=== PATIENT | female | born 1970 | race Caucasian/White ===

== ENCOUNTER 2022-11-03 14:46 | Emergency (ER) | payer BC ==
--- NOTE | 2022-11-03 14:47 | ERPHSYRPT ---
- History of Present Illness Time Seen by Provider: 11/03/22 14:47 Source: patient Exam Limitations: no limitations Physician History: This is a 52-year-old white female patient who lives in [place] and was heading to [facility] because of increasing shortness of breath her last few days. However, her shortness of breath suddenly worsened and therefore she diverted herself here to this emergency department. Patient's was recently diagnosed with COVID-19 infection (approximately 1 and half weeks ago). Patient states that shortness of breath is worse with exertion. Patient denies chest pain. She denies abdominal pain. She has no nausea vomiting or diarrhea symptoms. She has not had a fever or cough. Her throat has been sore. Pt has h/o of seizure. Timing/Duration: day(s) (Last few days), worse Activities at Onset: activity Severity of Dyspnea-Max: moderate Severity of Dyspnea-Current: moderate Possible Cause: no prior episodes Modifying Factors: Improves With: activity Associated Symptoms: anxiety, No chest pain/discomfort Allergies/Adverse Reactions: No Known Drug Allergies Allergy (Verified 11/03/22 14:59) Home Medications: Cholecalciferol (Vitamin D3) [Vitamin D] 2,000 unit PO DAILY 11/03/22 [ History] Desvenlafaxine Succinate [Pristiq ER] 50 mg PO DAILY 11/03/22 [History] Dextroamphetamine/Amphetamine [Adderall Xr 20 mg Capsule] 20 mg PO DAILY 11/03/22 [History] Hydrocodone/Acetaminophen [Hydrocodone-Acetamin 2.5-325] 1 each PO QID 11/03/22 [History] Levetiracetam [Keppra] 1,500 mg PO BID 11/03/22 [History] Lipase/Protease/Amylase [Creon Dr 36,000 Units Capsule] 1 each PO DAILY 11/03/22 [History] Midodrine HCl 5 mg PO TID 11/03/22 [History] Pregabalin [Lyrica 150Mg] 150 mg PO BID 11/03/22 [History] azaTHIOprine [Imuran] 150 mg PO DAILY 11/03/22 [History] Travel Risk - International Travel Have you traveled outside of the country in past 3 weeks: No - Coronavirus Screening Are you exhibiting any of the following symptoms?: No Close contact with a COVID-19 positive Pt in past 14-21 Days: No - Review of Systems Constitutional: No Symptoms Eyes: No Symptoms Ears, Nose, & Throat: No Symptoms Respiratory: Dyspnea on Exertion (PHILLIP) Cardiac: No Symptoms Abdominal/Gastrointestinal: No Symptoms Genitourinary Symptoms: No Symptoms Musculoskeletal: No Symptoms Skin: No Symptoms Neurological: No Symptoms Psychological: No Symptoms Endocrine: No Symptoms Hematologic/Lymphatic: No Symptoms Immunological/Allergic: No Symptoms All Other Systems: Reviewed and Negative - Past Medical History Pertinent Past Medical History: Yes - Past Surgical History Past Surgical History: Yes - Nursing Vital Signs Nursing Vital Signs: Initial Vital Signs Temperature 97.1 F 11/03/22 14:47 Pulse Rate 90 11/03/22 14:47 Respiratory Rate 28 H 11/03/22 14:47 Blood Pressure 151/102 11/03/22 14:47 O2 Sat by Pulse Oximetry 100 11/03/22 14:47 Pain Scale Pain Intensity 0 - Physical Exam General Appearance: mild distress, alert, anxiety Eye Exam: PERRL/EOMI, eyes nml inspection Ears, Nose, Throat Exam: hearing grossly normal, normal ENT inspection, normal pharynx Neck Exam: normal inspection, non-tender, supple, full range of motion Respiratory Exam: normal breath sounds, lungs clear, airway intact, No chest tenderness, No respiratory distress Cardiovascular/Chest Exam: normal heart sounds, regular rate/rhythm Abdominal/Gastrointestinal Exam: soft, normal bowel sounds, No tenderness Rectal Exam: not done Extremity Exam: non-tender, normal range of motion, normal inspection Neurologic Exam: alert, oriented x 3, cooperative, technical healthcare consultant II-XII nml as tested, normal mood/affect, nml cerebellar function, nml station & gait, sensation nml Skin Exam: normal color, warm, dry Lymphatic Exam: No adenopathy SpO2 Interpretation: normal O2 Delivery: Room Air - Course Nursing assessment & vital signs reviewed: Yes EKG Interpreted by Me: RATE (82), Sinus Rhythm, NORMAL AXIS, NORMAL INTERVALS, NORMAL QRS, NORMAL ST-T, Other (No acute ischemic changes on today's twelve-lead EKG. No comparison twelve-lead EKG available.) Ordered Tests: Active Orders 24 hr Category Date Time Status Licensed Life And Health Agent STAT Care 11/03/22 15:14 Active EKG-ER Only STAT Care 11/03/22 15:11 Active IV Insertion STAT Care 11/03/22 15:11 Active Pulse Oximetry (ED) STAT Care 11/03/22 15:11 Active CHEST 1 VIEW (PORTABLE) Stat Exams 11/03/22 17:01 Taken BLOOD CULTURE Stat Lab 11/03/22 15:55 Received CBC W DIFF Stat Lab 11/03/22 15:50 Completed CMP Stat Lab 11/03/22 15:50 Completed D-DIMER QUANTITATIVE Stat Lab 11/03/22 15:50 Completed Lactic Acid Stat Lab 11/03/22 15:11 Completed NT PRO BNPII Stat Lab 11/03/22 15:50 Completed TROPONIN Q4H Lab 11/03/22 15:50 Completed TROPONIN Q4H Lab 11/03/22 19:15 Ordered TROPONIN Q4H Lab 11/03/22 23:15 Ordered Respiratory Therapy Assessment DAILY RT 11/03/22 15:37 Completed Medication Summary Discontinued Medications Generic Name Dose Route Start Last Admin Trade Name Freq PRN Reason Stop Dose Admin Albuterol/Ipratropium Confirm 11/03/22 15:33 Ipratropium/Albuterol Sulfate 3 Ml Ampul.Neb Administered 11/03/22 15:34 Dose 3 ml IH .STK-MED ONE Albuterol/Ipratropium 3 ml 11/03/22 15:36 11/03/22 15:53 Ipratropium/Albuterol Sulfate 3 Ml Ampul.Neb IH 11/03/22 15:37 3 ml STAT ONE Administration Methylprednisolone Sodium 0 mg 11/03/22 17:03 11/03/22 17:26 Succinate 125 mg/ Sterile IV 11/03/22 17:04 125 mg Water 2 ml STAT ONE Administration Methylprednisolone Sodium Succinate Confirm 11/03/22 17:26 Methylprednis Sod Succ 125 Mg/2 Ml Vial Administered 11/03/22 17:27 Dose 125 mg .ROUTE .STK-MED ONE Sterile Water Confirm 11/03/22 17:26 Water For Injection,Sterile 10 Ml Vial Administered 11/03/22 17:27 Dose 10 ml IJ .STK-MED ONE Lab/Rad Data: Laboratory Result Diagrams 11/03/22 15:50 11/03/22 15:50 Laboratory Results 11/03/22 11/03/22 11/03/22 Range/Units 16:00 15:50 15:50 WBC (4.0-10.5) x10^3/uL RBC (4.1-5.4) x10^6/uL Hgb (12.0-16.0) g/dL Hct (35-47) % MCV (78-100) fL MCH (26-32) pg MCHC (32-36) g/dL RDW (11.5-14.0) % Plt Count (150-450) x10^3/uL MPV (7.5-11.0) fL Gran % (36.0-66.0) % Immature Gran % (Auto) (0.00-0.4) % Nucleat RBC Rel Count (0.00-0.1) % Eos # (Auto) (0-0.5) x10^3/uL Immature Gran # (Auto) (0.00-0.03) x10^3u/L Absolute Lymphs (auto) (1.0-4.6) x10^3/uL Absolute Monos (auto) (0.0-1.3) x10^3/uL Absolute Nucleated RBC (0.00-0.01) x10^3u/L Lymphocytes % (24.0-44.0) % Monocytes % (0.0-12.0) % Eosinophils % (0.00-5.0) % Basophils % (0.0-0.4) % Absolute Granulocytes (1.4-6.9) x10^3/uL Basophils # (0-0.4) x10^3/uL D-Dimer < 0.19 (0.0-0.50) mg/L Sodium (137-145) mmol/L Potassium (3.5-5.1) mmol/L Chloride (98-107) mmol/L Carbon Dioxide (22-30) mmol/L Anion Gap (5-15) MEQ/L BUN (7-17) mg/dL Creatinine (0.52-1.04) mg/dL Estimated GFR ML/MIN Glucose (74-106) mg/dL Lactic Acid (0.4-2.0) Calcium (8.4-10.2) mg/dL Total Bilirubin (0.2-1.3) mg/dL AST (14-36) U/L ALT (0-35) U/L Alkaline Phosphatase (38-126) U/L Troponin I < 0.012 (0.000-0.034) ng/mL NT-Pro-B Natriuret Pep (<300) pg/mL Serum Total Protein (6.3-8.2) g/dL Albumin (3.5-5.0) g/dL Influenza Type A Ag NEGATIVE (NEGATIVE) Influenza Type B Ag NEGATIVE (NEGATIVE) RSV (PCR) NEGATIVE (NEGATIVE) SARS-CoV-2 (PCR) POSITIVE A (NEGATIVE) 11/03/22 11/03/22 11/03/22 Range/Units 15:50 15:50 15:11 WBC 4.3 (4.0-10.5) x10^3/uL RBC 4.61 (4.1-5.4) x10^6/uL Hgb 14.2 (12.0-16.0) g/dL Hct 42.1 (35-47) % MCV 91.3 (78-100) fL MCH 30.8 (26-32) pg MCHC 33.7 (32-36) g/dL RDW 12.9 (11.5-14.0) % Plt Count 316 (150-450) x10^3/uL MPV 8.9 (7.5-11.0) fL Gran % 66.7 H (36.0-66.0) % Immature Gran % (Auto) 0.7 H (0.00-0.4) % Nucleat RBC Rel Count 0.0 (0.00-0.1) % Eos # (Auto) 0.02 (0-0.5) x10^3/uL Immature Gran # (Auto) 0.03 (0.00-0.03) x10^3u/L Absolute Lymphs (auto) 0.94 L (1.0-4.6) x10^3/uL Absolute Monos (auto) 0.41 (0.0-1.3) x10^3/uL Absolute Nucleated RBC 0.00 (0.00-0.01) x10^3u/L Lymphocytes % 22.0 L (24.0-44.0) % Monocytes % 9.6 (0.0-12.0) % Eosinophils % 0.5 (0.00-5.0) % Basophils % 0.5 (0.0-0.4) % Absolute Granulocytes 2.85 (1.4-6.9) x10^3/uL Basophils # 0.02 (0-0.4) x10^3/uL D-Dimer (0.0-0.50) mg/L Sodium 139 (137-145) mmol/L Potassium 4.2 (3.5-5.1) mmol/L Chloride 105 (98-107) mmol/L Carbon Dioxide 25 (22-30) mmol/L Anion Gap 14.0 (5-15) MEQ/L BUN 12 (7-17) mg/dL Creatinine 0.85 (0.52-1.04) mg/dL Estimated GFR > 60.0 ML/MIN Glucose 99 (74-106) mg/dL Lactic Acid 1.7 (0.4-2.0) Calcium 9.0 (8.4-10.2) mg/dL Total Bilirubin 0.30 (0.2-1.3) mg/dL AST 23 (14-36) U/L ALT 26 (0-35) U/L Alkaline Phosphatase 81 (38-126) U/L Troponin I (0.000-0.034) ng/mL NT-Pro-B Natriuret Pep 22.9 (<300) pg/mL Serum Total Protein 7.3 (6.3-8.2) g/dL Albumin 4.2 (3.5-5.0) g/dL Influenza Type A Ag (NEGATIVE) Influenza Type B Ag (NEGATIVE) RSV (PCR) (NEGATIVE) SARS-CoV-2 (PCR) (NEGATIVE) - Progress Progress: improved, re-examined Air Movement: good Progress Note: 11/03/22 16:12 This patient's medical issue is 1 of moderate complexity. Level complexity in the work-up performed is based on review of the patient's past medical history, review the patient's medication list, review the patient's drug allergy list, review of the patient's present medical issue and physical findings on examination. The work-up in this patient includes a twelve-lead EKG, chest x- ray or CT of the chest depending on the results of the D-dimer, troponin level, BNP, viral swabs. 11/03/22 17:50 I evaluated the results of the work-up in the emergency department. Patient's COVID-19 status is positive for COVID-19 infection. Patient has a normal D- dimer. Patient has a normal BNP. Patient has a normal troponin level. Patient has a normal twelve-lead EKG without evidence of any acute ischemic changes. Patient's chest x-ray was interpreted by me and I do not see an acute cardiopulmonary process. Patient's lab work and x-rays and vital signs show no evidence of an acute, emergent issue. 11/03/22 17:53 I checked and rechecked and rechecked again this patient's laboratory work-up, twelve-lead EKG and chest x-ray evaluation. The only thing that I am finding of significance is a COVID-19 infection which certainly can be the cause of her shortness of breath. I asked her on a number of occasions if there is any other issue or concern that she has at this time. She says she does not. We will discharge her to home with a prescription for prednisone. Blood Culture(s) Obtained: Yes Counseled pt/family regarding: lab results, diagnosis, need for follow-up Medical Desision Making - Diagnostic Testing Diagnostic test were ordered, analyzed, and reviewed by me: Yes Radiological Interpretation: Interpreted by me - Risk of complications The pt has a mod risk of morbidity or mortality based on: Need for prescription drug management - Departure Departure Disposition: Home Clinical Impression: COVID-19 virus infection Condition: Stable Critical Care Time: No Referrals: ZEINA OROPEZA [Primary Care Provider] - Follow up/PCP as directed Additional Instructions: Drink plenty of fluids. Take your medication as prescribed. Follow-up with your prescribing provider on 11/07/2019 3 in the morning to make arrangements for follow-up appointment after your quarantine period of time. Quarantine yourself for the next 7 days. Take your steroids as prescribed. Prescriptions: Prednisone 10 mg [Deltasone 10 mg] 10 mg PO TID #12 tablet
[2022-11-03] MEDS ORDERED: DUONEB 0.5-3 MG/3 ml Neb IH ONE ×2 (15:33→15:36)
[2022-11-03 16:13] LABS: Absolute Neutrophil Ct (ANC) 2.85 x10^3/uL (1.4-6.9); BASOPHIL % 0.5 % (0.0-0.4); Basophil (Absolute #) 0.02 x10^3/uL (0-0.4); Eosinophil % 0.5 % (0.00-5.0); Eosinophil (Absolute #) 0.02 x10^3/uL (0-0.5); Hematocrit 42.1 % (35-47); Hemoglobin 14.2 g/dL (12.0-16.0); IMMATURE GRAN # 0.03 x10^3u/L (0.00-0.03); IMMATURE GRAN % 0.7 % (0.00-0.4); Lymphocyte (Absolute #) 0.94 x10^3/uL (1.0-4.6); Mean Cell Volume 91.3 fL (78-100); Mean Corpuscular Hemoglobin 30.8 pg (26-32); Mean Corpuscular Hgb Concent. 33.7 g/dL (32-36); Mean Platelet Volume 8.9 fL (7.5-11.0); Monocyte (Absolute #) 0.41 x10^3/uL (0.0-1.3); Monocytes % 9.6 % (0.0-12.0); Neutrophil % 66.7 % (36.0-66.0); Platelet Count 316 x10^3/uL (150-450); Red Blood Count 4.61 x10^6/uL (4.1-5.4); Red Cell Distribution Width 12.9 % (11.5-14.0); White Blood Count 4.3 x10^3/uL (4.0-10.5)
[2022-11-03 16:37] LABS: ALBUMIN 4.2 g/dL (3.5-5.0); ALKALINE PHOSPHATASE 81 U/L (38-126); BLOOD UREA NITROGEN 12 mg/dL (7-17); CHLORIDE 105 mmol/L (98-107); Carbon Dioxide 25 mmol/L (22-30); Creatinine 1 0.85 mg/dL (0.52-1.04); EST GLOMERULAR FILTRATION RATE > 60.0 ML/MIN; Glucose 99 mg/dL (74-106); NT PRO BNPII 22.9 pg/mL (<300); Potassium 4.2 mmol/L (3.5-5.1); SGOT/AST 23 U/L (14-36); SGPT/ALT 26 U/L (0-35); SODIUM 139 mmol/L (137-145); Total Protein 7.3 g/dL (6.3-8.2)
[2022-11-03 16:47] LABS: INFLUENZA A NEGATIVE (NEGATIVE); INFLUENZA B NEGATIVE (NEGATIVE); RESPIRATORY SYNCTIAL VIRUS NEGATIVE (NEGATIVE)
[2022-11-03 16:52] LABS: SARS-CoV-2 Xpert Express POSITIVE (NEGATIVE)
[2022-11-03 16:54] VITALS: RESP 22; TEMP 98.2
[2022-11-03 17:03] VITALS: PULSE 92
[2022-11-03] MEDS ORDERED: solu-MEDROL 125 MG, Sterile H2O 10 ml 2 ML IV ONE ×2 (17:03)
[2022-11-03] MEDS ORDERED: solu-MEDROL ONE (17:26)
[2022-11-03] MEDS ORDERED: Sterile H2O 10 ml IJ ONE (17:26)
[2022-11-03 18:11] VITALS: BP 133/92; O2SAT 98
== END 2022-11-03 18:22 | disposition home or self-care (01) ==
LOC: ED 14:46
DX: U07.1 COVID-19 (principal); R06.02 Shortness of breath; J02.9 Acute pharyngitis, unspecified; Z79.52 Long term (current) use of systemic steroids; Z79.891 Long term (current) use of opiate analgesic
CPT/HCPCS: 0241U; 36000; 36415; 71045; 80053; 83605; 83880; 84484; 85025; 85379; 87040; 93005; 93041; 94640; 94760; 96374; 99284; J2930; A9270-GY

== ENCOUNTER 2023-11-30 22:36 | Emergency (ER) | payer BC ==
--- NOTE | 2023-11-30 22:54 | ERPHSYRPT ---
- History of Present Illness Time Seen by Provider: 11/30/23 22:53 Historian: patient, family Exam Limitations: no limitations Physician History: This is a 53-year-old white female patient who was fine this morning when she awoke and early afternoon. Later afternoon she started having some epigastric abdominal pain, headache and felt as though she was going to have a liquid diarrheal stool. She then became nauseated and passed out. Patient has multiple medical issues. She has a history of seizure disorder, gastric bypass surgery, Crohn's disease, paroxysmal hypotension and she is on midodrine for this. She has a history of recurrent dizziness, she denies chest pain. She denies shortness of breath. Patient does have a history gastroesophageal reflux disease, peptic ulcer disease, PTSD, conversion disorder as well as anxiety and depression. Patient gets dehydrated very easily per her report. Timing/Duration: today Activities at Onset: none Quality: aching Abdominal Pain Onset Location: epigastric Severity of Pain-Max: mild (Moderate) Severity of Pain-Current: mild (To moderate) Modifying Factors: Improves With: vomiting Associated Symptoms: diarrhea, headache, loss of appetite, nausea, vomiting, weakness, No chest pain Previous symptoms: same symptoms as today, no recent treatment Allergies/Adverse Reactions: No Known Drug Allergies Allergy (Verified 11/30/23 23:08) Home Medications: Cholecalciferol (Vitamin D3) [Vitamin D] 2,000 unit PO DAILY 11/03/22 [History] Desvenlafaxine Succinate [Pristiq ER] 50 mg PO DAILY 11/03/22 [History] Dextroamphetamine/Amphetamine [Adderall Xr 20 mg Capsule] 20 mg PO DAILY 11/03/22 [History] Hydrocodone/Acetaminophen [Hydrocodone-Acetamin 2.5-325] 1 each PO QID 11/03/22 [History] Levetiracetam [Keppra] 1,500 mg PO BID 11/03/22 [History] Lipase/Protease/Amylase [Creon Dr 36,000 Units Capsule] 1 each PO DAILY 11/03/22 [History] Midodrine HCl 5 mg PO TID 11/03/22 [History] Pregabalin [Lyrica 150Mg] 150 mg PO BID 11/03/22 [History] azaTHIOprine [Imuran] 150 mg PO DAILY 11/03/22 [History] Hx Tetanus, Diphtheria Vaccination/Date Given: Yes Hx Influenza Vaccination/Date Given: Yes Hx Pneumococcal Vaccination/Date Given: No Travel Risk - Emerging Infectious Disease Are you exhibiting symptoms associated with any current EIDs: Yes Symptoms: Abdominal Pain, Diarrhea, Vomitting - Review of Systems Constitutional: Weakness Eyes: No Symptoms Ears, Nose, & Throat: No Symptoms Respiratory: No Symptoms Cardiac: Syncope Abdominal/Gastrointestinal: Abdominal Pain (Epigastrium), Nausea, Vomiting, Diarrhea (Chronic), Appetite Changes Genitourinary Symptoms: No Symptoms Musculoskeletal: No Symptoms Skin: No Symptoms Neurological: Dizziness, Headache Psychological: No Symptoms Endocrine: No Symptoms Hematologic/Lymphatic: No Symptoms Immunological/Allergic: No Symptoms All Other Systems: Reviewed and Negative - Past Medical History Pertinent Past Medical History: Yes Neurological History: Seizures ENT History: No Pertinent History Cardiac History: No Pertinent History Respiratory History: No Pertinent History Endocrine Medical History: Other Musculoskeletal History: No Pertinent History GI Medical History: Crohns Disease, Diverticulosis, GERD, Ulcer History: No Pertinent History Psycho-Social History: Anxiety, Depression, Other Female Reproductive Disorders: Other Other Medical History: ovarian cyst. PTSD. conversion disorder - Past Surgical History Past Surgical History: Yes Other Surgical History: gastric bypass. tubal. tonsil and adnoids. julian. ovarian cyst removal - Social History Smoking Status: Never smoker Exposure to second hand smoke: No Drug Use: none Patient Lives Alone: No - Nursing Vital Signs Nursing Vital Signs: Initial Vital Signs Temperature 97 F 11/30/23 22:46 Pulse Rate 84 11/30/23 22:46 Respiratory Rate 18 11/30/23 22:46 Blood Pressure 114/83 11/30/23 22:46 O2 Sat by Pulse Oximetry 100 11/30/23 22:46 Pain Scale Pain Intensity 4 - Physical Exam General Appearance: no apparent distress, alert, anxiety, thin Eye Exam: PERRL/EOMI, eyes nml inspection Ears, Nose, Throat Exam: dry mucous membranes Neck Exam: normal inspection, non-tender, supple, full range of motion Respiratory Exam: normal breath sounds, lungs clear, airway intact, No chest tenderness, No respiratory distress Cardiovascular Exam: regular rate/rhythm, normal heart sounds, normal peripheral pulses Gastrointestinal/Abdomen Exam: soft, normal bowel sounds, tenderness (Epigastrium to palpation), guarding (Epigastrium to palpation), No rebound Pelvic Exam: not done Rectal Exam: not done Back Exam: normal inspection, normal range of motion, No CVA tenderness, No vertebral tenderness Extremity Exam: normal inspection, normal range of motion, pelvis stable Neurologic Exam: alert, oriented x 3, cooperative, 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 QTc is 437) Ordered Tests: Active Orders 24 hr Category Date Time Status EKG-ER Only STAT Care 11/30/23 23:31 Active IV Insertion STAT Care 11/30/23 23:31 Active ABDOMEN AND PELVIS W/0 CONTRAS [CT] Stat Exams 11/30/23 23:32 Completed HEAD WITHOUT CONTRAST [CT] Stat Exams 11/30/23 23:33 Completed AMYLASE Stat Lab 11/30/23 23:35 Completed BLOOD CULTURE Stat Lab 11/30/23 23:50 Received CBC W DIFF Stat Lab 11/30/23 23:35 Completed CMP Stat Lab 11/30/23 23:35 Completed CULTURE,URINE Stat Lab 12/01/23 00:10 Received ETHYL ALCOHOL Stat Lab 11/30/23 23:35 Completed LIPASE Stat Lab 11/30/23 23:35 Completed MONO SCREEN Stat Lab 11/30/23 23:35 Completed TROPONIN Q4H Lab 11/30/23 23:35 Completed TROPONIN Q4H Lab 12/01/23 03:45 Ordered TROPONIN Q4H Lab 12/01/23 07:45 Ordered UA W/RFX UR CULTURE Stat Lab 12/01/23 00:10 Completed Medication Summary Generic Name Dose Route Start Last Admin Trade Name Freq PRN Reason Stop Dose Admin Lactated Ringer's 500 mls @ 500 mls/hr 12/01/23 01:18 Lactated Ringers IV 12/01/23 02:17 .Q1H ONE Ceftriaxone Sodium 1 gm in 100 mls @ 200 mls/hr 12/01/23 01:18 Rocephin 1 Gm / 100 Ml Nacl IV 12/01/23 01:47 STAT ONE Discontinued Medications Generic Name Dose Route Start Last Admin Trade Name Erik PRN Reason Stop Dose Admin Sodium Chloride 1,000 mls @ 999 mls/hr 11/30/23 23:31 12/01/23 01:13 Sodium Chloride 0.9% 1000 Ml IV 12/01/23 00:31 Infused .Q1H1M STA Infusion Sodium Chloride Confirm 12/01/23 00:05 Sodium Chloride 0.9% 1000 Ml Administered 12/01/23 00:06 Dose 1,000 mls @ ud .ROUTE .STK-MED ONE Ondansetron HCl 4 mg 11/30/23 23:31 12/01/23 00:06 Ondansetron Hcl 4 Mg/2 Ml Vial IV 11/30/23 23:32 4 mg STAT ONE Administration Ondansetron HCl Confirm 12/01/23 00:05 Ondansetron Hcl 4 Mg/2 Ml Vial Administered 12/01/23 00:06 Dose 4 mg .ROUTE .STK-MED ONE Pantoprazole Sodium 40 mg 11/30/23 23:31 12/01/23 00:06 Pantoprazole 40 Mg Vial IV 11/30/23 23:32 40 mg STAT ONE Administration Pantoprazole Sodium Confirm 12/01/23 00:05 Pantoprazole 40 Mg Vial Administered 12/01/23 00:06 Dose 40 mg IV .STK-MED ONE Lab/Rad Data: Laboratory Result Diagrams 11/30/23 23:35 11/30/23 23:35 Laboratory Results 12/01/23 11/30/23 11/30/23 Range/Units 00:10 23:55 23:35 WBC (3.98-10.04) x10^3/uL RBC (3.93-5.22) x10^6/uL Hgb (11.2-15.7) g/dL Hct (34.1-44.9) % MCV (79.4-94.8) fL MCH (25.6-32.2) pg MCHC (32.2-35.5) g/dL RDW (11.7-14.4) % Plt Count (182-369) x10^3/uL MPV (9.4-12.3) fL Gran % (34.0-71.1) % Immature Gran % (Auto) (0.001-0.429) % Nucleat RBC Rel Count (0.00-0.2) % Eos # (Auto) (0.04-0.36) x10^3/uL Immature Gran # (Auto) (0.001-0.031) x10^3u/L Absolute Lymphs (auto) (1.18-3.74) x10^3/uL Absolute Monos (auto) (0.24-0.86) x10^3/uL Absolute Nucleated RBC (0.00-0.012) x10^3u/L Lymphocytes % (19.3-51.7) % Monocytes % (4.7-12.5) % Eosinophils % (0.7-5.8) % Basophils % (0.1-1.2) % Absolute Granulocytes (1.56-6.13) x10^3/uL Basophils # (0.01-0.08) x10^3/uL Sodium (135-145) mmol/L Potassium (3.5-5.1) mmol/L Chloride (98-107) mmol/L Carbon Dioxide (22-30) mmol/L Anion Gap (5-15) MEQ/L BUN (7-17) mg/dL Creatinine (0.52-1.04) mg/dL Estimated GFR ML/MIN Glucose (74-106) mg/dL Calcium (8.4-10.2) mg/dL Total Bilirubin (0.2-1.3) mg/dL AST (14-36) U/L ALT (0-35) U/L Alkaline Phosphatase (38-126) U/L Troponin I (0.000-0.033) ng/mL Serum Total Protein (6.3-8.2) g/dL Albumin (3.5-5.0) g/dL Amylase (30-110) U/L Lipase (23-300) U/L Urine Color Dark Yellow A (Yellow) Urine Appearance Cloudy A (Clear) Urine pH 5.0 (4.6-8.0) Ur Specific [place] >=1.030 A (1.005-1.030) Urine Protein 30 (Negative) Urine Glucose (UA) Negative (Negative) mg/dL Urine Ketones Trace A (Negative) Urine Blood Moderate A (Negative) Urine Nitrite Negative (Negative) Urine Bilirubin Negative (Negative) Urine Urobilinogen 1.0 A (0.2) mg/dL Ur Leukocyte Esterase Negative (Negative) U Hyaline Cast (Auto) 11-20 (0-2) /LPF Urine Microscopic RBC 21-50 A (0-5) /HPF Urine Microscopic WBC 6-10 A (0-5) /HPF Ur Epithelial Cells Few (None Seen) /HPF Calcium Oxalate Crystal 11-25 A (None Seen) /HPF Urine Bacteria Few A (None Seen) /HPF Urine Culture Reflexed YES (NO) Ethyl Alcohol (0-10) mg/dL Monoscreen NEGATIVE (NEGATIVE) Influenza Type A Ag NEGATIVE (NEGATIVE) Influenza Type B Ag NEGATIVE (NEGATIVE) RSV (PCR) NEGATIVE (NEGATIVE) SARS-CoV-2 (PCR) NEGATIVE (NEGATIVE) 11/30/23 11/30/23 11/30/23 Range/Units 23:35 23:35 23:35 WBC 6.2 (3.98-10.04) x10^3/uL RBC 4.25 (3.93-5.22) x10^6/uL Hgb 12.9 (11.2-15.7) g/dL Hct 37.7 (34.1-44.9) % MCV 88.7 (79.4-94.8) fL MCH 30.4 (25.6-32.2) pg MCHC 34.2 (32.2-35.5) g/dL RDW 11.8 (11.7-14.4) % Plt Count 241 (182-369) x10^3/uL MPV 9.6 (9.4-12.3) fL Gran % 47.3 (34.0-71.1) % Immature Gran % (Auto) 0.3 (0.001-0.429) % Nucleat RBC Rel Count 0.0 (0.00-0.2) % Eos # (Auto) 0.06 (0.04-0.36) x10^3/uL Immature Gran # (Auto) 0.02 (0.001-0.031) x10^3u/L Absolute Lymphs (auto) 2.71 (1.18-3.74) x10^3/uL Absolute Monos (auto) 0.46 (0.24-0.86) x10^3/uL Absolute Nucleated RBC 0.00 (0.00-0.012) x10^3u/L Lymphocytes % 43.7 (19.3-51.7) % Monocytes % 7.4 (4.7-12.5) % Eosinophils % 1.0 (0.7-5.8) % Basophils % 0.3 (0.1-1.2) % Absolute Granulocytes 2.93 (1.56-6.13) x10^3/uL Basophils # 0.02 (0.01-0.08) x10^3/uL Sodium 141 (135-145) mmol/L Potassium 4.5 (3.5-5.1) mmol/L Chloride 107 (98-107) mmol/L Carbon Dioxide 25 (22-30) mmol/L Anion Gap 13.1 (5-15) MEQ/L BUN 11 (7-17) mg/dL Creatinine 0.82 (0.52-1.04) mg/dL Estimated GFR 85.0 ML/MIN Glucose 146 H (74-106) mg/dL Calcium 8.8 (8.4-10.2) mg/dL Total Bilirubin 0.20 (0.2-1.3) mg/dL AST 20 (14-36) U/L ALT 16 (0-35) U/L Alkaline Phosphatase 76 (38-126) U/L Troponin I < 0.012 (0.000-0.033) ng/mL Serum Total Protein 6.6 (6.3-8.2) g/dL Albumin 3.9 (3.5-5.0) g/dL Amylase 81 (30-110) U/L Lipase 125 (23-300) U/L Urine Color (Yellow) Urine Appearance (Clear) Urine pH (4.6-8.0) Ur Specific [place] (1.005-1.030) Urine Protein (Negative) Urine Glucose (UA) (Negative) mg/dL Urine Ketones (Negative) Urine Blood (Negative) Urine Nitrite (Negative) Urine Bilirubin (Negative) Urine Urobilinogen (0.2) mg/dL Ur Leukocyte Esterase (Negative) U Hyaline Cast (Auto) (0-2) /LPF Urine Microscopic RBC (0-5) /HPF Urine Microscopic WBC (0-5) /HPF Ur Epithelial Cells (None Seen) /HPF Calcium Oxalate Crystal (None Seen) /HPF Urine Bacteria (None Seen) /HPF Urine Culture Reflexed (NO) Ethyl Alcohol < 10 (0-10) mg/dL Monoscreen (NEGATIVE) Influenza Type A Ag (NEGATIVE) Influenza Type B Ag (NEGATIVE) RSV (PCR) (NEGATIVE) SARS-CoV-2 (PCR) (NEGATIVE) - Progress Progress: improved, pain not gone completely, re-examined Progress Note: 11/30/23 23:44 My medical decision making and the assignment of moderate complexity to this patient's medical issue today is based on review of the patient's past medical history, review of the patient's medication list, reviewed patient drug allergy list, history present illness and physical findings on examination. The workup in this patient includes placement of intravenous line, infusion of normal saline solution, infusion of Zofran intravenously, CBC, CMP, amylase, lipase, ethyl alcohol level, urinalysis, twelve-lead EKG, troponin level, CT scan of the abdomen pelvis without contrast, CT scan of the head without contrast. Differential diagnosis includes but is not limited to anxiety about health, deh ydration, vomiting, electrolyte abnormalities, acute intra-abdominal abnormality, acute intracranial abnormality, pancreatitis 12/01/23 01:27 I interpreted the patient's laboratory data results. Based on the laboratory data results, the patient has a significant urinary tract infection and mild deh ydration. The remainder of the laboratory data workup shows no acute, emergent medical issue CT scan of the head was interpreted by the radiologist and I reviewed the impression the impression states no acute intracranial abnormality. CT scan of the abdomen pelvis without contrast shows no significant acute intra- abdominal or intrapelvic abnormality. Counseled pt/family regarding: lab results, diagnosis, rad results - Departure Departure Disposition: Home Clinical Impression: UTI (urinary tract infection), Dehydration Condition: Stable Critical Care Time: No Referrals: ZEINA OROPEZA [Primary Care Provider] - Follow up/PCP as directed Additional Instructions: Drink plenty of clear liquids. Take your antibiotics and other medications as prescribed. Call your primary prescribing provider, bariatric surgeon, GI specialist on 12/03/2023 to make arrangements for follow-up appointment for further evaluation management and to be seen in the next 5 to 7 days. Prescriptions: Ondansetron ODT 4 MG [Zofran Odt 4 mg] 4 mg PO Q6H PRN PRN #10 tablet PRN Reason: Vomiting Cefdinir 300 mg PO BID #14 cap
[2023-11-30 23:08] VITALS: TEMP 97
[2023-11-30 23:56] LABS: Absolute Neutrophil Ct (ANC) 2.93 x10^3/uL (1.56-6.13); BASOPHIL % 0.3 % (0.1-1.2); Basophil (Absolute #) 0.02 x10^3/uL (0.01-0.08); Eosinophil (Absolute #) 0.06 x10^3/uL (0.04-0.36); Hematocrit 37.7 % (34.1-44.9); Hemoglobin 12.9 g/dL (11.2-15.7); IMMATURE GRAN # 0.02 x10^3u/L (0.001-0.031); IMMATURE GRAN % 0.3 % (0.001-0.429); Lymphocyte (Absolute #) 2.71 x10^3/uL (1.18-3.74); Lymphocytes % 43.7 % (19.3-51.7); Mean Cell Volume 88.7 fL (79.4-94.8); Mean Corpuscular Hemoglobin 30.4 pg (25.6-32.2); Mean Corpuscular Hgb Concent. 34.2 g/dL (32.2-35.5); Mean Platelet Volume 9.6 fL (9.4-12.3); Monocyte (Absolute #) 0.46 x10^3/uL (0.24-0.86); Monocytes % 7.4 % (4.7-12.5); Neutrophil % 47.3 % (34.0-71.1); Platelet Count 241 x10^3/uL (182-369); Red Blood Count 4.25 x10^6/uL (3.93-5.22); Red Cell Distribution Width 11.8 % (11.7-14.4); White Blood Count 6.2 x10^3/uL (3.98-10.04)
[2023-12-01] MEDS ORDERED: PROTONIX 40 MG IV IV ONE (00:05)
[2023-12-01] MEDS ORDERED: Sodium Chloride 0.9% 1000 ML 1,000 ML ONE (00:05)
[2023-12-01] MEDS ORDERED: Zofran 4 MG/2 ML VIAL ONE (00:05)
[2023-12-01] MEDS: Sodium Chloride 0.9% 1000 ML 1,000 ML IV STA (00:06)
[2023-12-01] MEDS: PROTONIX 40 MG IV IV ONE (00:06)
[2023-12-01] MEDS: Zofran 4 MG/2 ML VIAL IV ONE (00:06)
[2023-12-01 00:13] LABS: ALBUMIN 3.9 g/dL (3.5-5.0); ALKALINE PHOSPHATASE 76 U/L (38-126); AMYLASE 81 U/L (30-110); ANION GAP 13.1 MEQ/L (5-15); BLOOD UREA NITROGEN 11 mg/dL (7-17); CHLORIDE 107 mmol/L (98-107); Calcium 8.8 mg/dL (8.4-10.2); Carbon Dioxide 25 mmol/L (22-30); Creatinine 1 0.82 mg/dL (0.52-1.04); ETHYL ALCOHOL < 10 mg/dL (0-10); Glucose 146 mg/dL (74-106); LIPASE 125 U/L (23-300); Potassium 4.5 mmol/L (3.5-5.1); SGOT/AST 20 U/L (14-36); SGPT/ALT 16 U/L (0-35); SODIUM 141 mmol/L (135-145); Total Protein 6.6 g/dL (6.3-8.2)
[2023-12-01 00:52] LABS: Appearance Cloudy (Clear); Bilirubin Negative (Negative); Blood Moderate (Negative); Epithelial Cells Few /HPF (None Seen); Glucose, Urine Negative (Negative); Ketones Trace (Negative); Leukocyte Esterase Negative (Negative); Nitrite Negative (Negative); Protein,Urine Dip 30 (Negative); RBC 21-50 /HPF (0-5); Specific Gravity >=1.030 (1.005-1.030)
[2023-12-01 01:08] LABS: Bacteria Few /HPF (None Seen)
--- NOTE | 2023-12-01 01:15 | XRAY ---
CLINICAL HISTORY: ABD pain; diarrhea COMPARISON: None. TECHNIQUE: A CT scan of the abdomen and pelvis was performed without IV contrast. Coronal and sagittal reconstructive images were also obtained. One of the following dose reduction techniques was utilized for this exam: Automated exposure control, adjustment of the mA and/or kV according to patient size, and use of iterative reconstruction. FINDINGS: Sections of the lower thorax show minimal bilateral pleural reaction. Abdomen: The liver is normal in size. No focal or diffuse parenchymal abnormality. The intrahepatic biliary radicals and the bile ducts are normal. Postcholecystectomy status. The spleen, pancreas, and adrenal glands are unremarkable. The kidneys are normal in size and shape. No calculi or hydronephrosis. Fecal-loaded colon. The visualized small bowel loops are unremarkable. The appendix appears unremarkable. Post gastric bypass surgery changes. Small uncomplicated fat-containing umbilical hernia. Pelvis: The urinary bladder is unremarkable. The rectosigmoid colon is unremarkable. Uterus and adnexa appear unremarkable. Mild degenerative changes in the lumbar spine were noted. IMPRESSION: No significant acute intra-abdominal abnormality was detected in plain CT abdomen and pelvis. Electronically Signed by: Epi Garcia MD. (12/01/2023 01:12:02 EDT)
[2023-12-01 01:17] LABS: INFLUENZA A NEGATIVE (NEGATIVE); INFLUENZA B NEGATIVE (NEGATIVE); RESPIRATORY SYNCTIAL VIRUS NEGATIVE (NEGATIVE); SARS-CoV-2 Xpert Express NEGATIVE (NEGATIVE)
--- NOTE | 2023-12-01 01:21 | XRAY ---
CLINICAL HISTORY: Syncopal episode COMPARISON: none TECHNIQUE: Multiple axial images are obtained from the skull base to the vertex without contrast. CT scan was performed according to ALARA (as low as reasonable achievable). FINDINGS: The brain shows normal morphology, attenuation, and volume for age. No evidence of space occupying lesion, hemorrhage, edema, mass effect, midline shift, extra axial collection, or hydrocephalus is noted. Ventricles, sulci, and basal cisterns are symmetric and normal in size and configuration. The willard-white matter differentiation is preserved. Visualized paranasal sinuses and mastoid air cells are well aerated. Orbital contents are within normal limits. Bony structures are intact. IMPRESSION: 1. No evidence of acute intracranial abnormality is demonstrated Electronically Signed by: Mat Phillips MD. (12/01/2023 01:16:53 EDT)
[2023-12-01] MEDS: Lactated Ringers 500 ML IV ONE (01:26)
[2023-12-01] MEDS ORDERED: ROCEPHIN 1 GM / 100 ML NaCl 1 GM/100 ML IVPB IV ONE (01:27)
[2023-12-01] MEDS ORDERED: Sodium Chloride 0.9% 500 ML 500 ML IV ONE (01:27)
[2023-12-01] MEDS: ROCEPHIN 1 GM / 100 ML NaCl 1 GM/100 ML IVPB IV ONE (01:28)
[2023-12-01] MEDS: Sodium Chloride 0.9% 500 ML 500 ML IV ONE (01:28)
[2023-12-01 03:03] VITALS: BP 117/82; PULSE 69; RESP 18; O2SAT 97
== END 2023-12-01 02:10 | disposition home or self-care (01) ==
LOC: ED 22:36
DX: N39.0 Urinary tract infection, site not specified (principal); E86.0 Dehydration; R55 Syncope and collapse; R10.13 Epigastric pain; R51.9 Headache, unspecified; R11.0 Nausea; Z79.899 Other long term (current) drug therapy
CPT/HCPCS: 0241U; 36000; 36415; 70450; 74176; 80053; 81001; 82077; 82150; 83690; 84484; 85025; 86308; 87040; 87086; 93005; 96360; 96365; 96374; 96375; 99284; J0696; J2405

== ENCOUNTER 2023-12-06 16:16 | Emergency (ER) | payer BC ==
[2023-12-06 16:41] VITALS: RESP 21; TEMP 97.7; O2SAT 97
--- NOTE | 2023-12-06 17:10 | ERPHSYRPT ---
- History of Present Illness Time Seen by Provider: 12/06/23 16:26 Source: patient Exam Limitations: no limitations Patient Subjective Stated Complaint: C/O Headache since 11/30/23. Also c/o upper back pain near scapulas. Triage Nursing Assessment: Patient is alert and oriented; tearful and anxious. No SOB. Skin tone normal. GUTIERREZ WNL; ambulated back to ER without difficulties. Physician History: 53-year-old female with multiple medical problems including anxiety depression, conversion disorder, seizures, Crohn's, GERD, chronic pain currently under pain management, had trigger point injections presented in the ER with complaints of headache. Patient reports moderate intensity generalized headache all over since yesterday off-and-on, reports associated nausea but no vomiting. Denies any blurry vision, numbness tingling or focal weakness. Also reports having increasing pain in the back especially in the upper back area. She had trigger point injection in that area as well. No fever chills or difficulty movements of neck reported. Does have chronic abdominal pain which is not any worse than usual. Patient fell few days ago and had a CT head done which was negative. Allergies/Adverse Reactions: No Known Drug Allergies Allergy (Verified 12/06/23 16:29) Home Medications: Cholecalciferol (Vitamin D3) [Vitamin D] 2,000 unit PO DAILY 11/03/22 [History] Desvenlafaxine Succinate [Pristiq ER] 50 mg PO DAILY 11/03/22 [History] Dextroamphetamine/Amphetamine [Adderall Xr 20 mg Capsule] 20 mg PO DAILY 11/03/22 [History] Hydrocodone/Acetaminophen [Hydrocodone-Acetamin 2.5-325] 1 each PO QID 11/03/22 [History] Levetiracetam [Keppra] 1,500 mg PO BID 11/03/22 [History] Lipase/Protease/Amylase [Ilda Dr 36,000 Units Capsule] 1 each PO DAILY 11/03/22 [History] Midodrine HCl 5 mg PO TID 11/03/22 [History] Pregabalin [Lyrica 150Mg] 150 mg PO BID 11/03/22 [History] azaTHIOprine [Imuran] 150 mg PO DAILY 11/03/22 [History] Hx Tetanus, Diphtheria Vaccination/Date Given: Yes Hx Influenza Vaccination/Date Given: Yes Hx Pneumococcal Vaccination/Date Given: No Immunizations Up to Date: Yes Travel Risk - International Travel Have you traveled outside of the country in past 3 weeks: No - Emerging Infectious Disease Are you exhibiting symptoms associated with any current EIDs: Yes Symptoms: Headaches/Body Aches/ - Review of Systems Constitutional: No Symptoms Eyes: No Symptoms Ears, Nose, & Throat: No Symptoms Respiratory: No Symptoms Cardiac: No Symptoms Abdominal/Gastrointestinal: Abdominal Pain, Nausea, Diarrhea Genitourinary Symptoms: Frequency Musculoskeletal: Back Pain, Fall Skin: No Symptoms Neurological: Headache Psychological: Anxiety, Depression, Emotional Lability Endocrine: No Symptoms Hematologic/Lymphatic: No Symptoms - Past Medical History Pertinent Past Medical History: Yes Neurological History: Migraines, Seizures ENT History: No Pertinent History Cardiac History: No Pertinent History Respiratory History: No Pertinent History Endocrine Medical History: Other Musculoskeletal History: No Pertinent History GI Medical History: Crohns Disease, Diverticulosis, GERD, Ulcer History: No Pertinent History Psycho-Social History: Anxiety, Depression, Other Female Reproductive Disorders: Other Other Medical History: ovarian cyst, PTSD, conversion disorder - Past Surgical History Past Surgical History: Yes Gastrointestinal: Cholecystectomy, Other Female Surgical History: Tubal Ligation, Other Other Surgical History: gastric bypass, ovarian cyst removal - Female History Hx Now: No - Social History Smoking Status: Never smoker Exposure to second hand smoke: No Drug Use: none Patient Lives Alone: No - Social Determinants of Health Will the patient participate in the screening: Declined to provide - Nursing Vital Signs Nursing Vital Signs: Initial Vital Signs Pulse Rate 69 12/06/23 16:30 Respiratory Rate 16 12/06/23 16:30 Blood Pressure 139/94 12/06/23 16:30 O2 Sat by Pulse Oximetry 97 12/06/23 16:30 Pain Scale Pain Intensity 7 - Physical Exam General Appearance: no apparent distress, alert, anxiety Eye Exam: PERRL/EOMI, eyes nml inspection Ears, Nose, Throat Exam: normal ENT inspection, TMs normal, pharynx normal, moist mucous membranes Neck Exam: normal inspection, non-tender, supple, full range of motion Respiratory Exam: normal breath sounds, lungs clear Cardiovascular Exam: regular rate/rhythm, normal heart sounds Gastrointestinal/Abdominal Exam: soft, normal bowel sounds, No tenderness Back Exam: normal inspection, normal range of motion, muscle spasm Extremity Exam: normal inspection, normal range of motion Mental Status Exam: alert, oriented x 3, cooperative icer hand Exam: normal hearing, normal speech, PERRL Coordination/Gait Exam: normal finger to nose, normal gait, normal cerebellar function Motor/Sensory Exam: no motor deficit, no sensory deficit, no pronator drift DTR Exam: bicep (R): 2+, bicep (L): 2+, knee (R): 2+, knee (L): 2+ Skin Exam: normal color SpO2 Interpretation: normal SpO2: 97 O2 Delivery: Room Air Ordered Tests: Active Orders 24 hr Category Date Time Status IV Insertion STAT Care 12/06/23 17:02 Active UA W/RFX UR CULTURE Stat Lab 12/06/23 17:44 Completed Medication Summary Discontinued Medications Generic Name Dose Route Start Last Admin Trade Name Diegoq PRN Reason Stop Dose Admin Acetaminophen 975 mg 12/06/23 17:02 12/06/23 17:46 Acetaminophen 325 Mg Tablet PO 12/06/23 17:03 975 mg STAT ONE Administration Acetaminophen Confirm 12/06/23 17:43 Acetaminophen 325 Mg Tablet Administered 12/06/23 17:44 Dose 975 mg .ROUTE .STK-MED ONE Diphenhydramine HCl 25 mg 12/06/23 17:02 12/06/23 17:50 Diphenhydramine Hcl 50 Mg/Ml Vial IV 12/06/23 17:03 25 mg STAT ONE Administration Diphenhydramine HCl Confirm 12/06/23 17:43 Diphenhydramine Hcl 50 Mg/Ml Vial Administered 12/06/23 17:44 Dose 50 mg .ROUTE .STK-MED ONE Sodium Chloride 1,000 mls @ 999 mls/hr 12/06/23 17:02 12/06/23 17:47 Sodium Chloride 0.9% 1000 Ml IV 12/06/23 18:02 999 mls/hr .Q1H1M STA Administration Sodium Chloride Confirm 12/06/23 17:43 Sodium Chloride 0.9% 1000 Ml Administered 12/06/23 17:44 Dose 1,000 mls @ ud .ROUTE .STK-MED ONE Ketorolac Tromethamine 30 mg 12/06/23 17:02 12/06/23 17:52 Ketorolac Tromethamine 30 Mg/Ml Inj IV 12/06/23 17:03 30 mg STAT ONE Administration Ketorolac Tromethamine Confirm 12/06/23 17:43 Ketorolac Tromethamine 30 Mg/Ml Inj Administered 12/06/23 17:44 Dose 30 mg .ROUTE .STK-MED ONE Metoclopramide HCl 10 mg 12/06/23 17:02 12/06/23 17:54 Metoclopramide Hcl 10 Mg/2 Ml Vial IV 12/06/23 17:03 10 mg STAT ONE Administration Metoclopramide HCl Confirm 12/06/23 17:43 Metoclopramide Hcl 10 Mg/2 Ml Vial Administered 12/06/23 17:44 Dose 10 mg .ROUTE .STK-MED ONE Lab/Rad Data: Laboratory Results 12/06/23 Range/Units 17:44 Urine Color Yellow (Yellow) Urine Appearance Clear (Clear) Urine pH 6.0 (4.6-8.0) Ur Specific [place] 1.025 (1.005-1.030) Urine Protein Negative (Negative) Urine Glucose (UA) Negative (Negative) mg/dL Urine Ketones Negative (Negative) Urine Blood Negative (Negative) Urine Nitrite Negative (Negative) Urine Bilirubin Negative (Negative) Urine Urobilinogen 0.2 (0.2) mg/dL Ur Leukocyte Esterase Negative (Negative) U Hyaline Cast (Auto) NONE SEEN (0-2) /LPF Urine Microscopic RBC 0-2 (0-5) /HPF Urine Microscopic WBC 0-2 (0-5) /HPF Ur Epithelial Cells None Seen (None Seen) /HPF Urine Bacteria None Seen (None Seen) /HPF Urine Culture Reflexed NO (NO) - Progress Progress: improved, re-examined Air Movement: good Progress Note: 12/06/23 18:47 53-year-old with multiple medical problems including anxiety/depression/PTSD/chronic pain on pain management is evaluated in the ER for headache which is worsening today. Nonfocal neuroexam. No signs of meningismus. She had a fall few days ago and had a CT head done which was negative. This is not the worst headache of her life. No visual disturbance. She is given fluid and migraine cocktail with Toradol/Benadryl/Reglan, on reevaluation her headache is remarkably improved. Neuroexam remained nonfocal. Recommended outpatient follow-up with her primary neurologist Dr. Reyes. Do not think she needs another imaging or any workup and is stable for discharge. Discussed signs symptoms of worsening needing return to ER which she seems und erstanding. Blood Culture(s) Obtained: No Antibiotics given: No Counseled pt/family regarding: diagnosis, need for follow-up Medical Desision Making - Diagnostic Testing Diagnostic test were ordered, analyzed, and reviewed by me: No - Risk of complications The pt has a mod risk of morbidity or mortality based on: Need for prescription drug management - Departure Departure Disposition: Home Clinical Impression: Migraine Condition: Stable Critical Care Time: No Referrals: ZEINA OROPEZA [Primary Care Provider] - Follow up with PCP 1 day Instructions: Headache, Adult (DC) Additional Instructions: Continue with your current pain medications. Follow-up with your neurologist for reevaluation. Return to ER for intractable pain, numbness tingling focal weakness, visual disturbance etc.
[2023-12-06] MEDS ORDERED: BENADRYL 50 MG/ML ONE (17:43)
[2023-12-06] MEDS ORDERED: TORAdol 30 mg Injection ONE (17:43)
[2023-12-06] MEDS ORDERED: TYLENOL 325 MG ONE (17:43)
[2023-12-06] MEDS ORDERED: Sodium Chloride 0.9% 1000 ML 1,000 ML ONE (17:43)
[2023-12-06] MEDS ORDERED: Reglan 10 MG/2 ML ONE (17:43)
[2023-12-06 17:45] VITALS: PULSE 67
[2023-12-06] MEDS: TYLENOL 325 MG PO ONE (17:46)
[2023-12-06] MEDS: Sodium Chloride 0.9% 1000 ML 1,000 ML IV STA (17:47)
[2023-12-06] MEDS: BENADRYL 50 MG/ML IV ONE (17:50)
[2023-12-06] MEDS: TORAdol 30 mg Injection IV ONE (17:52)
[2023-12-06] MEDS: Reglan 10 MG/2 ML IV ONE (17:54)
[2023-12-06 18:07] VITALS: BP 118/65
[2023-12-06 18:09] LABS: Appearance Clear (Clear); Bacteria None Seen /HPF (None Seen); Bilirubin Negative (Negative); Blood Negative (Negative); Epithelial Cells None Seen /HPF (None Seen); Glucose, Urine Negative (Negative); Hyaline Casts NONE SEEN /LPF (0-2); Ketones Negative (Negative); Leukocyte Esterase Negative (Negative); Nitrite Negative (Negative); Protein,Urine Dip Negative (Negative); RBC 0-2 /HPF (0-5); Specific Gravity 1.025 (1.005-1.030); Urobilinogen 0.2 mg/dL (0.2); WBC 0-2 /HPF (0-5)
== END 2023-12-06 19:05 | disposition home or self-care (01) ==
LOC: ED 16:16
DX: G43.909 Migraine, unspecified, not intractable, without status migrainosus (principal); R11.0 Nausea; M54.6 Pain in thoracic spine; Z79.899 Other long term (current) drug therapy
CPT/HCPCS: 36000; 81001; 96374; 96375; 99284; J1200; J1885; A9270-GY

== ENCOUNTER 2024-03-31 11:11 | Emergency (ER) | payer BC ==
[2024-03-31 11:28] VITALS: TEMP 98.4
--- NOTE | 2024-03-31 11:39 | ERPHSYRPT ---
- History of Present Illness Time Seen by Provider: 03/31/24 11:38 Source: patient, family Exam Limitations: no limitations Patient Subjective Stated Complaint: "I've been getting palpitations with simple activities at home, I was doing the laundry and them all of a sudden was short of breath and felt like my heart was racing. I've had a lot of issues going on. Issues with my absorption and history of low iron." Triage Nursing Assessment: Pt presents to ER with complaints of shortness of breath and palpitations for the past 3 days with simple acitivities. Pt states has had a lot going on. Her PCP has been tampering her Keppra due to not having seizure activities lately, but patient has noticed intermittent muscle spasms. Pt has history of malabsorption, low iron, and UTI. Pt is alert and oriented x 3. Skin is pink, warm, and dry. Respirations are easy. Pt appears slightly anxious. Pt has active bowel sounds. Complains of nausea. Pt appears weak. Pupils are PERRL. Denies pain at triage, complains of brain fog. Physician History: This is a 53-year-old white female patient who has multiple medical issues and concerns today primarily this patient's complaint is shortness of breath and palpitations. She has had this intermittently over the last 3 days even with simple daily activities. Patient denies chest pain. Patient denies abdominal pain. Patient has a "monitor" at home which showed her heart rate being in the 120s to 130s. Upon arrival to the emergency department patient's blood pressure is 120/73 with a pulse of 84 and normal sinus rhythm. Patient's room air oxygen saturation levels 99% and patient is afebrile. Patient has a history of anemia and low ferritin levels. She gets frequent urinary tract infections. She has migraine headache. She has seizure issues and they have been adjusting her Keppra medication. Patient has a history of Crohn's disease, gastroesophageal reflux disease, PTSD, anxiety and conversion disorder. Activities at Onset: activity (Full activities) Quality: other (No pain. Palpitation sensation) Severity of Pain-Max: none Severity of Pain-Current: none Modifying Factors: Improves With: exertion Nitro Today/Relief: no nitro taken today Aspirin Treatment Today: no aspirin today Prior Chest Pain/Cardiac Workup: no prior cardiac workup Allergies/Adverse Reactions: No Known Drug Allergies Allergy (Verified 03/31/24 11:27) Home Medications: Cholecalciferol (Vitamin D3) [Vitamin D] 2,000 unit PO DAILY 11/03/22 [History] Desvenlafaxine Succinate [Pristiq ER] 100 mg PO DAILY 11/03/22 [History] Levetiracetam [Keppra] 1,250 mg PO BID 11/03/22 [History] Lipase/Protease/Amylase [Ilda Ornelas 36,000 Units Capsule] 1 dose PO CLARIFY 11/03/22 [History] Pregabalin [Lyrica 150Mg] 150 mg PO BID 11/03/22 [History] Cholestyramine/Aspartame [Cholestyramine Light Packet] 4 gm PO BID 03/31/24 [His tory] Fremanezumab-Vfrm [Ajovy] 225 mg SQ CLARIFY 03/31/24 [History] Naltrexone HCl [Naltrex] 6 mg PO DAILY 03/31/24 [History] PANTOPRAZOLE 40 mg Tablet [Protonix 40MG Tablet] 40 mg PO DAILY 03/31/24 [History] Quetiapine Fumarate 100 mg [Seroquel 100 MG] 100 mg PO HS 03/31/24 [History] Rimegepant Sulfate [Nurtec Odt] 75 mg PO Q12H PRN PRN 03/31/24 [History] Risankizumab-Rzaa [Skyrizi Pen] 360 mg SQ UD 03/31/24 [History] Tizanidine HCl 4 mg [Zanaflex 4 MG] 4 - 8 mg PO BIDPRN PRN 03/31/24 [History] clonazePAM [Klonopin] 0.5 mg PO BIDPRN PRN 03/31/24 [History] Hx Tetanus, Diphtheria Vaccination/Date Given: Yes Hx Influenza Vaccination/Date Given: Yes Hx Pneumococcal Vaccination/Date Given: Yes Immunizations Up to Date: Yes Travel Risk - International Travel Have you traveled outside of the country in past 3 weeks: No - Emerging Infectious Disease Are you exhibiting symptoms associated with any current EIDs: Yes Symptoms: Shortness of Breath - Past Medical History Pertinent Past Medical History: Yes Neurological History: Migraines, Seizures ENT History: No Pertinent History Cardiac History: No Pertinent History Respiratory History: No Pertinent History Endocrine Medical History: Other Musculoskeletal History: No Pertinent History GI Medical History: Crohns Disease, Diverticulosis, GERD, Ulcer History: No Pertinent History Psycho-Social History: Anxiety, Depression, Other Female Reproductive Disorders: Other Other Medical History: ovarian cyst, PTSD, conversion disorder, anemia, malabsorption, pancreatic insuffiency, UTI, no fecal tone - history of implant to help fecal stimulator but has been taken out due to not being effective. - Past Surgical History Past Surgical History: Yes Gastrointestinal: Cholecystectomy, Other Female Surgical History: Tubal Ligation, Other Other Surgical History: gastric bypass, ovarian cyst removal - Female History Hx Last Menstrual Period: 03/20/24 Hx Now: No - Social History Smoking Status: Never smoker Exposure to second hand smoke: No Drug Use: none Patient Lives Alone: No - Social Determinants of Health Will the patient participate in the screening: Yes Do you worry about a steady place to live?: No Do you have any problems with any of the following?: No known problems In the past 12 months,have you had to go without utilities?: No Transportation Issues: No Has anyone in your support network made you feel unsafe?: No Have you or anyone in your house had to go without enough: No - Nursing Vital Signs Nursing Vital Signs: Initial Vital Signs Temperature 98.4 F 03/31/24 11:14 Pulse Rate 84 03/31/24 11:14 Respiratory Rate 22 03/31/24 11:14 Blood Pressure 120/73 03/31/24 11:14 O2 Sat by Pulse Oximetry 100 03/31/24 11:14 Pain Scale Pain Intensity 0 - Physical Exam SpO2: 99 - Course Nursing assessment & vital signs reviewed: Yes EKG Interpreted by Me: RATE (78), Sinus Rhythm, Left [place] Deviation (Borderline), NORMAL INTERVALS, NORMAL QRS, Other (No acute ischemia. QTc 432) Ordered Tests: Active Orders 24 hr Category Date Time Status Residential Housekeeper STAT Care 03/31/24 11:39 Active EKG-ER Only STAT Care 03/31/24 11:39 Active IV Insertion STAT Care 03/31/24 11:39 Active Pulse Oximetry (ED) STAT Care 03/31/24 11:39 Active CBC W DIFF Stat Lab 03/31/24 11:45 Completed CMP Stat Lab 03/31/24 11:39 Completed Ferritin Stat Lab 03/31/24 11:45 Completed MAGNESIUM Stat Lab 03/31/24 11:39 Completed MONO SCREEN Stat Lab 03/31/24 11:30 Completed NT PRO BNPII Stat Lab 03/31/24 11:39 Completed TROPONIN Q4H Lab 03/31/24 11:45 Completed TSH, 3RD Generation Stat Lab 03/31/24 11:39 Completed UA W/RFX UR CULTURE Stat Lab 03/31/24 14:50 Completed Bardy 3-7 Day Holter ONCE RT 03/31/24 15:43 Completed Medication Summary Discontinued Medications Generic Name Dose Route Start Last Admin Trade Name Erik PRN Reason Stop Dose Admin Sodium Chloride 1,000 mls @ 999 mls/hr 03/31/24 12:27 03/31/24 14:13 Sodium Chloride 0.9% 1000 Ml IV 03/31/24 13:27 Infused .Q1H1M STA Infusion Sodium Chloride Confirm 03/31/24 13:11 Sodium Chloride 0.9% 1000 Ml Administered 03/31/24 13:12 Dose 1,000 mls @ ud .ROUTE .K-MED ONE Lab/Rad Data: Laboratory Result Diagrams 03/31/24 11:45 03/31/24 11:39 Laboratory Results 03/31/24 03/31/24 03/31/24 Range/Units 14:50 12:35 11:45 WBC (3.98-10.04) x10^3/uL RBC (3.93-5.22) x10^6/uL Hgb (11.2-15.7) g/dL Hct (34.1-44.9) % MCV (79.4-94.8) fL MCH (25.6-32.2) pg MCHC (32.2-35.5) g/dL RDW (11.7-14.4) % Plt Count (182-369) x10^3/uL MPV (9.4-12.3) fL Gran % (34.0-71.1) % Immature Gran % (Auto) (0.001-0.429) % Nucleat RBC Rel Count (0.00-0.2) % Eos # (Auto) (0.04-0.36) x10^3/uL Immature Gran # (Auto) (0.001-0.031) x10^3u/L Absolute Lymphs (auto) (1.18-3.74) x10^3/uL Absolute Monos (auto) (0.24-0.86) x10^3/uL Absolute Nucleated RBC (0.00-0.012) x10^3u/L Lymphocytes % (19.3-51.7) % Monocytes % (4.7-12.5) % Eosinophils % (0.7-5.8) % Basophils % (0.1-1.2) % Absolute Granulocytes (1.56-6.13) x10^3/uL Basophils # (0.01-0.08) x10^3/uL Sodium (135-145) mmol/L Potassium (3.5-5.1) mmol/L Chloride (98-107) mmol/L Carbon Dioxide (22-30) mmol/L Anion Gap (5-15) MEQ/L BUN (7-17) mg/dL Creatinine (0.52-1.04) mg/dL Estimated GFR ML/MIN Glucose (74-106) mg/dL Calcium (8.4-10.2) mg/dL Magnesium (1.6-2.3) mg/dL Ferritin 6.95 L (11.1-264) ng/mL Total Bilirubin (0.2-1.3) mg/dL AST (14-36) U/L ALT (0-35) U/L Alkaline Phosphatase (38-126) U/L Troponin I (0.000-0.033) ng/mL NT-Pro-B Natriuret Pep (<300) pg/mL Serum Total Protein (6.3-8.2) g/dL Albumin (3.5-5.0) g/dL Free T4 (0.78-2.19) ng/dL TSH 3rd Generation (0.470-4.680) mIU/L Urine Color Yellow (Yellow) Urine Appearance Clear (Clear) Urine pH 7.0 (4.6-8.0) Ur Specific [place] 1.010 (1.005-1.030) Urine Protein Negative (Negative) Urine Glucose (UA) Negative (Negative) mg/dL Urine Ketones Negative (Negative) Urine Blood Negative (Negative) Urine Nitrite Negative (Negative) Urine Bilirubin Negative (Negative) Urine Urobilinogen 1.0 A (0.2) mg/dL Ur Leukocyte Esterase Negative (Negative) U Hyaline Cast (Auto) NONE SEEN (0-2) /LPF Urine Microscopic RBC NONE SEEN (0-5) /HPF Urine Microscopic WBC NONE SEEN (0-5) /HPF Ur Epithelial Cells Rare (None Seen) /HPF Amorphous Crystals (None Seen) /HPF Urine Bacteria None Seen (None Seen) /HPF Urine Culture Reflexed NO (NO) Monoscreen (NEGATIVE) Influenza Type A Ag NEGATIVE (NEGATIVE) Influenza Type B Ag NEGATIVE (NEGATIVE) RSV (PCR) NEGATIVE (NEGATIVE) SARS-CoV-2 (PCR) NEGATIVE (NEGATIVE) 03/31/24 03/31/24 03/31/24 Range/Units 11:45 11:45 11:45 WBC 4.7 (3.98-10.04) x10^3/uL RBC 4.50 (3.93-5.22) x10^6/uL Hgb 13.1 (11.2-15.7) g/dL Hct 39.9 (34.1-44.9) % MCV 88.7 (79.4-94.8) fL MCH 29.1 (25.6-32.2) pg MCHC 32.8 (32.2-35.5) g/dL RDW 11.9 (11.7-14.4) % Plt Count 228 (182-369) x10^3/uL MPV 9.3 L (9.4-12.3) fL Gran % 60.3 (34.0-71.1) % Immature Gran % (Auto) 0.2 (0.001-0.429) % Nucleat RBC Rel Count 0.0 (0.00-0.2) % Eos # (Auto) 0.06 (0.04-0.36) x10^3/uL Immature Gran # (Auto) 0.01 (0.001-0.031) x10^3u/L Absolute Lymphs (auto) 1.49 (1.18-3.74) x10^3/uL Absolute Monos (auto) 0.28 (0.24-0.86) x10^3/uL Absolute Nucleated RBC 0.00 (0.00-0.012) x10^3u/L Lymphocytes % 31.8 (19.3-51.7) % Monocytes % 6.0 (4.7-12.5) % Eosinophils % 1.3 (0.7-5.8) % Basophils % 0.4 (0.1-1.2) % Absolute Granulocytes 2.83 (1.56-6.13) x10^3/uL Basophils # 0.02 (0.01-0.08) x10^3/uL Sodium (135-145) mmol/L Potassium (3.5-5.1) mmol/L Chloride (98-107) mmol/L Carbon Dioxide (22-30) mmol/L Anion Gap (5-15) MEQ/L BUN (7-17) mg/dL Creatinine (0.52-1.04) mg/dL Estimated GFR ML/MIN Glucose (74-106) mg/dL Calcium (8.4-10.2) mg/dL Magnesium (1.6-2.3) mg/dL Ferritin (11.1-264) ng/mL Total Bilirubin (0.2-1.3) mg/dL AST (14-36) U/L ALT (0-35) U/L Alkaline Phosphatase (38-126) U/L Troponin I < 0.012 (0.000-0.033) ng/mL NT-Pro-B Natriuret Pep (<300) pg/mL Serum Total Protein (6.3-8.2) g/dL Albumin (3.5-5.0) g/dL Free T4 1.14 (0.78-2.19) ng/dL TSH 3rd Generation (0.470-4.680) mIU/L Urine Color (Yellow) Urine Appearance (Clear) Urine pH (4.6-8.0) Ur Specific [place] (1.005-1.030) Urine Protein (Negative) Urine Glucose (UA) (Negative) mg/dL Urine Ketones (Negative) Urine Blood (Negative) Urine Nitrite (Negative) Urine Bilirubin (Negative) Urine Urobilinogen (0.2) mg/dL Ur Leukocyte Esterase (Negative) U Hyaline Cast (Auto) (0-2) /LPF Urine Microscopic RBC (0-5) /HPF Urine Microscopic WBC (0-5) /HPF Ur Epithelial Cells (None Seen) /HPF Amorphous Crystals (None Seen) /HPF Urine Bacteria (None Seen) /HPF Urine Culture Reflexed (NO) Monoscreen (NEGATIVE) Influenza Type A Ag (NEGATIVE) Influenza Type B Ag (NEGATIVE) RSV (PCR) (NEGATIVE) SARS-CoV-2 (PCR) (NEGATIVE) 03/31/24 03/31/24 Range/Units 11:39 11:30 WBC (3.98-10.04) x10^3/uL RBC (3.93-5.22) x10^6/uL Hgb (11.2-15.7) g/dL Hct (34.1-44.9) % MCV (79.4-94.8) fL MCH (25.6-32.2) pg MCHC (32.2-35.5) g/dL RDW (11.7-14.4) % Plt Count (182-369) x10^3/uL MPV (9.4-12.3) fL Gran % (34.0-71.1) % Immature Gran % (Auto) (0.001-0.429) % Nucleat RBC Rel Count (0.00-0.2) % Eos # (Auto) (0.04-0.36) x10^3/uL Immature Gran # (Auto) (0.001-0.031) x10^3u/L Absolute Lymphs (auto) (1.18-3.74) x10^3/uL Absolute Monos (auto) (0.24-0.86) x10^3/uL Absolute Nucleated RBC (0.00-0.012) x10^3u/L Lymphocytes % (19.3-51.7) % Monocytes % (4.7-12.5) % Eosinophils % (0.7-5.8) % Basophils % (0.1-1.2) % Absolute Granulocytes (1.56-6.13) x10^3/uL Basophils # (0.01-0.08) x10^3/uL Sodium 140 (135-145) mmol/L Potassium 4.2 (3.5-5.1) mmol/L Chloride 105 (98-107) mmol/L Carbon Dioxide 25 (22-30) mmol/L Anion Gap 14.2 (5-15) MEQ/L BUN 13 (7-17) mg/dL Creatinine 0.82 (0.52-1.04) mg/dL Estimated GFR 85.0 ML/MIN Glucose 109 H (74-106) mg/dL Calcium 9.0 (8.4-10.2) mg/dL Magnesium 2.3 (1.6-2.3) mg/dL Ferritin (11.1-264) ng/mL Total Bilirubin 0.50 (0.2-1.3) mg/dL AST 29 (14-36) U/L ALT 18 (0-35) U/L Alkaline Phosphatase 82 (38-126) U/L Troponin I (0.000-0.033) ng/mL NT-Pro-B Natriuret Pep 26.3 (<300) pg/mL Serum Total Protein 6.7 (6.3-8.2) g/dL Albumin 4.1 (3.5-5.0) g/dL Free T4 (0.78-2.19) ng/dL TSH 3rd Generation 2.041 (0.470-4.680) mIU/L Urine Color (Yellow) Urine Appearance (Clear) Urine pH (4.6-8.0) Ur Specific [place] (1.005-1.030) Urine Protein (Negative) Urine Glucose (UA) (Negative) mg/dL Urine Ketones (Negative) Urine Blood (Negative) Urine Nitrite (Negative) Urine Bilirubin (Negative) Urine Urobilinogen (0.2) mg/dL Ur Leukocyte Esterase (Negative) U Hyaline Cast (Auto) (0-2) /LPF Urine Microscopic RBC (0-5) /HPF Urine Microscopic WBC (0-5) /HPF Ur Epithelial Cells (None Seen) /HPF Amorphous Crystals (None Seen) /HPF Urine Bacteria (None Seen) /HPF Urine Culture Reflexed (NO) Monoscreen NEGATIVE (NEGATIVE) Influenza Type A Ag (NEGATIVE) Influenza Type B Ag (NEGATIVE) RSV (PCR) (NEGATIVE) SARS-CoV-2 (PCR) (NEGATIVE) - Progress Progress: improved, re-examined Air Movement: good Progress Note: 03/31/24 15:27 My medical decision making on the assignment of moderate complexity of this patient's medical issue today is based on review of the patient's past medical history, review the patient's medication list, reviewed patient drug allergy list, history present illness and physical findings on examination. The workup in this patient includes placement of intravenous line, infusion of normal saline solution CBC, CMP, TSH, free T4, urinalysis, troponin level twelve-lead EKG. Differential diagnosis includes psychiatric issues anxiety about health/conversi on disorder, anemia, myocardial infarction, thyroid function test abnormality, electrolyte abnormality, arrhythmia, urinary tract infection, dehydration I interpreted the patient's laboratory data results. Based on the laboratory data results there are no acute, emergent medical issues. 03/31/24 15:30 We will order an Holter monitor for 72 hours. It is also recommended to the patient that she follow-up with neurology and cardiology because of her symptoms. Blood Culture(s) Obtained: No Antibiotics given: No Counseled pt/family regarding: lab results, diagnosis, need for follow-up Medical Desision Making - Independent Historian Additional History obtained from: Spouse - Diagnostic Testing Diagnostic test were ordered, analyzed, and reviewed by me: Yes - Risk of complications Minimal Risk: Minimal risk of morbidity - Departure Departure Disposition: Home Clinical Impression: Palpitations, Shortness of breath Condition: Stable Critical Care Time: No Referrals: ZEINA OROPEZA [Primary Care Provider] - Follow up/PCP as directed Additional Instructions: Drink plenty of fluids. Take your medications as prescribed. Call your primary care provider today, 03/31/2024, to make arrangements for an outpatient evaluation and to be seen in the next 3 to 5 days. Discussed with them possible referral to neurology and/or cardiology if indicated. Wear the Holter monitor as instructed and return it as instructed. You were informed today that your ferritin level 6.95 which is low. 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
[2024-03-31 11:54] LABS: Absolute Neutrophil Ct (ANC) 2.83 x10^3/uL (1.56-6.13); BASOPHIL % 0.4 % (0.1-1.2); Basophil (Absolute #) 0.02 x10^3/uL (0.01-0.08); Eosinophil % 1.3 % (0.7-5.8); Eosinophil (Absolute #) 0.06 x10^3/uL (0.04-0.36); Hematocrit 39.9 % (34.1-44.9); Hemoglobin 13.1 g/dL (11.2-15.7); IMMATURE GRAN # 0.01 x10^3u/L (0.001-0.031); IMMATURE GRAN % 0.2 % (0.001-0.429); Lymphocyte (Absolute #) 1.49 x10^3/uL (1.18-3.74); Lymphocytes % 31.8 % (19.3-51.7); Mean Cell Volume 88.7 fL (79.4-94.8); Mean Corpuscular Hemoglobin 29.1 pg (25.6-32.2); Mean Corpuscular Hgb Concent. 32.8 g/dL (32.2-35.5); Mean Platelet Volume 9.3 fL (9.4-12.3); Monocyte (Absolute #) 0.28 x10^3/uL (0.24-0.86); Neutrophil % 60.3 % (34.0-71.1); Platelet Count 228 x10^3/uL (182-369); Red Cell Distribution Width 11.9 % (11.7-14.4); White Blood Count 4.7 x10^3/uL (3.98-10.04)
[2024-03-31] MEDS ORDERED: Sodium Chloride 0.9% 1000 ML 1,000 ML ONE (13:11)
[2024-03-31] MEDS: Sodium Chloride 0.9% 1000 ML 1,000 ML IV STA (13:11)
[2024-03-31 13:25] LABS: INFLUENZA A NEGATIVE (NEGATIVE); INFLUENZA B NEGATIVE (NEGATIVE); RESPIRATORY SYNCTIAL VIRUS NEGATIVE (NEGATIVE); SARS-CoV-2 Xpert Express NEGATIVE (NEGATIVE)
[2024-03-31 13:33] LABS: ALBUMIN 4.1 g/dL (3.5-5.0); ANION GAP 14.2 MEQ/L (5-15); BILIRUBIN,TOTAL 0.5 mg/dL (0.2-1.3); Creatinine 1 0.82 mg/dL (0.52-1.04); MAGNESIUM 2.3 mg/dL (1.6-2.3); NT PRO BNPII 26.3 pg/mL (<300); Potassium 4.2 mmol/L (3.5-5.1); TSH, 3RD Generation 2.041 mIU/L (0.470-4.680); Total Protein 6.7 g/dL (6.3-8.2)
[2024-03-31 15:25] LABS: Appearance Clear (Clear); Bacteria None Seen /HPF (None Seen); Bilirubin Negative (Negative); Blood Negative (Negative); Epithelial Cells Rare /HPF (None Seen); Glucose, Urine Negative (Negative); Hyaline Casts NONE SEEN /LPF (0-2); Ketones Negative (Negative); Leukocyte Esterase Negative (Negative); Nitrite Negative (Negative); Protein,Urine Dip Negative (Negative); RBC NONE SEEN /HPF (0-5); WBC NONE SEEN /HPF (0-5)
[2024-03-31 15:33] VITALS: O2SAT 99
[2024-03-31 16:55] VITALS: PULSE 70; RESP 13
[2024-03-31 17:08] VITALS: BP 162/89
== END 2024-03-31 17:09 | disposition home or self-care (01) ==
LOC: ED 11:11
DX: R06.02 Shortness of breath (principal); R00.2 Palpitations; Z79.899 Other long term (current) drug therapy
CPT/HCPCS: 0241U; 36415; 80053; 81001; 82728; 83735; 83880; 84439; 84443; 84484; 85025; 86308; 93005; 93041; 93225; 94760; 99284